=== PATIENT | male | born 1945 | race Caucasian/White ===

== ENCOUNTER 2017-01-26 18:32 | Inpatient (IN) ==
[2017-01-26] MEDS ORDERED: SODIUM CHLORIDE 0.9% 500 ML IV STA (18:56)
[2017-01-26 19:14] LABS: Basophils # 0.1 10*3/uL (0.0-0.2); Basophils % 0.8 % (0.0-0.8); Eosinophils # 0.2 10*3/uL (0.0-0.87); Eosinophils % 2.1 % (0.00-10.9); Hematocrit 42.5 VOL% (42.0-52.0); Hemoglobin 14.6 GM/DL (14.0-18.0); Immature Granulocytes % 0.3 %; Immature Granulocytes Absolute 0.02 #; Lymphocytes # 1.4 10*3/uL (1.4-4.0); Lymphocytes % 19.4 % (21.2-54.2); Mean Corpuscular HGB Conc 34.4 GM/DL (32-36); Mean Corpuscular Hemoglobin 32 PG (27-34); Mean Platelet Volume 11.6 FL (9.6-12.0); Monocytes # 0.6 10*3/uL (0.11-0.8); Monocytes % 8.1 % (1.7-12.7); Neutrophils % 69.3 % (38.7-73.9); Platelet Count 247 T/CUMM (130-400); Red Blood Count 4.52 MC/CUMM (3.8-5.5); White Blood Count 7.3 T/CUMM (4-12)
--- NOTE | 2017-01-26 19:17 | Emergency Department Note ---
Tee Donnelly Rolonda, am scribing for, and in the presence of, Jay Miranda MD 19:07. Ruth Donnelly Charles R, MD, personally performed the services described in this documentation, ascribed by Josselin Oliveira in my presence, and it is both accurate and complete 916 . 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 Denies CP or SOB at current. Family reports patient has been seeing Dr. Moura for several "neurological issues" over the past month. Mode of Arrival: Stretcher Limitations: No Limitations Source: Patient, Old Records Reviewed, RN Notes Reviewed Time Seen by Provider: 01/26/17 18:53 - History of Present Illness HPI Narrative: Pt is a 71 y/o male who presents to the ED via EMS for further evaluation of syncope with an onset of x1 hour [employer]. Pt has a PMHx of HTN and TIA. He states that this has been an ongoing condition for months which is progressively worsening. He states that he was bending over in the refrigerated when he had a "bad spell" passing out. He denies LOC s/p syncope. Daughter states that it happened x2 times today with Sz-like sxs. Pt states that he also had CP and bilateral jaw pain. He states that he recently had a Holter monitor. He confirms weakness and vertigo but denies numbness and change in speech. states that pt recently had a MRI last week and a Dexa scan in [place]. No other complaint/pain in ED. Onset (ago): hour(s) Consistency: constant Severity: moderate, similar to previous episodes Severity scale (1-10): 4 Allergies/Adverse Reactions: Allergies Allergy/AdvReac Type Severity Reaction Status Date / Time No Known Allergies Allergy Verified 01/26/17 18:41 Review of System - Review of System 12 point system: reviewed and no additional remarkable complaints except as stated - Review of System Constitutional: Present: weakness. Absent: chills Eyes: Absent: discharge Head/Ears/Nose/Throat: Absent: earache Respiratory: Absent: cough Cardiovascular: Present: chest pain, syncope Gastrointestinal: Absent: abdominal pain Genitourinary male: Absent: dysuria Musculoskeletal: Present: other (bilateral jaw pain). Absent: arm pain, arthralgia Skin: Absent: rash Neurological: Present: vertigo. Absent: headache, numbness Psychiatric: Absent: anxiety Endocrine: Absent: cold intolerance Hematological/Lymphatic: Absent: easy bleeding Allergic/Immunologic: Absent: facial swelling Medical,Surgical,& Family Hx - Medical History Cardio: History of: Hypertension - Social History Smoking Status: Never smoker Frequency of Alcohol Use: None Type of Drug Use: None Exam Vital Signs: Vital Signs Temperature 98.4 F 01/26/17 18:37 Pulse Rate 92 H 01/26/17 18:37 Respiratory Rate 17 01/26/17 18:37 Blood Pressure 181/114 01/26/17 18:37 O2 Sat by Pulse Oximetry 99 01/26/17 19:17 - General General appearance: alert, in no apparent distress - Head Head exam: Present: atraumatic, normocephalic - Eye Eye exam: Present: PERRL, EOMI - ENT ENT exam: Present: mucous membranes moist. Absent: mucous membranes dry - Neck Neck exam: Present: full ROM. Absent: tenderness - Chest Chest inspection: Present: symmetric chest wall rise. Absent: tenderness - Respiratory Respiratory exam: Present: normal lung sounds bilaterally. Absent: wheezes - Cardiovascular Cardiovascular exam: Present: regular rate, normal rhythm, normal heart sounds. Absent: bradycardia - Abdominal Exam Abdominal exam: Present: soft, normal bowel sounds. Absent: tenderness - Extremities Exam Extremities exam: Present: full ROM. Absent: tenderness - Back Exam Back exam: Present: full ROM. Absent: tenderness - Neurological Exam Neurological exam: Present: alert, oriented X3, CN II-XII intact - Psychiatric Psychiatric exam: Present: normal affect, normal mood - Skin Skin exam: Present: warm, dry, intact, normal color. Absent: rash Course - Consultations Consultation #1: Hospitalist will admit patient Time: 20:00 Results - Labs CBC & BMP: 01/26/17 18:41 01/26/17 18:41 Lab Results: I have reviewed the patients labs Labs: Laboratory Tests 01/26/17 01/26/17 18:41 19:14 WBC 7.3 RBC 4.52 Hgb 14.6 Hct 42.5 Lymph % (Auto) 19.4 L POC Glucose 111 H Laboratory Tests 10/11/17 18:41 INR 1.0 PT Patient/Control Mix 10.6 D-Dimer, Quantitative 0.7 Laboratory Tests 01/26/17 01/26/17 01/26/17 18:41 18:41 18:41 Sodium 139 Potassium 3.9 Chloride 106 Carbon Dioxide 26 BUN 19 H GFR Calculation 77 Glucose 98 AST 13 Troponin I 0.075 H Globulin 4.1 H Albumin/Globulin Ratio 0.9 L Urine pH 7.0 Ur Specific [place] 1.006 Urine Protein Negative Urine Glucose (UA) Negative Urine Ketones 5 Urine Blood Negative Urine Nitrate Negative Urine Bilirubin Negative Urine Urobilinogen < 2.0 H Urine Leukocytes Negative Urine RBC <1 Urine WBC <1 Hyaline Casts 1 Urine Mucus Occasional Ur Culture Indicated? Not indicated Urine Opiates Screen Negative Ur Barbiturates Screen Negative Ur Phencyclidine Scrn Negative U Amphetamine/Methamph Negative U Benzodiazepines Scrn Negative U Cocaine Metab Screen Negative U Cannabinoids Screen Negative - Diagnostic Findings Procedure: Chest x-ray: report reviewed by me (Mild cardiomegaly without CHF.), CT: report reviewed by me (Head/Brain: Chronic small vessel ischemic changes similar on the prior study.) Disposition Clinical Impression: Chest pain, Syncope and collapse Case discussed with: patient, patient's family Disposition: Still a Patient Condition: Stable Time of Disposition: 20:00
--- NOTE | 2017-01-26 19:20 | CT Report ---
History is syncope There is mild diffuse atrophy. Patchy and more focal chronic ischemic changes in both basal ganglia and in seen. No acute cranial hemorrhage or mass effects seen No acute cortical stroke identified Impression: Chronic small vessel ischemic changes similar on the prior study The CT exam was performed using one or more of the following dose reduction techniques: Automated exposure control, adjustment of the mA and/or kV according to patient size, or use of iterative reconstruction technique. PROCEDURE INTERPRETED AT [facility] DEPARTMENT OF RADIOLOGY Final Report Signed by: Dr. Kinjal Ortega
--- NOTE | 2017-01-26 19:21 | XRay Report ---
History short of breath The heart is enlarged No congestive failure or confluent infiltrates seen Impression: Mild cardiomegaly without CHF PROCEDURE INTERPRETED AT [facility] DEPARTMENT OF RADIOLOGY Final Report Signed by: Dr. Kinjal Ortega
[2017-01-26 19:22] LABS: PT Patient Result 10.6 SECS
[2017-01-26 19:29] LABS: Alanine Aminotransferase 22 U/L (16-61); Albumin 3.8 G/DL (3.4-5.0); Alkaline Phosphatase 76 U/L (45-117); Aspartate Amino Transferase 13 U/L (0-37); Bilirubin,Total < 0.39 MG/DL (0.2-1.0); Blood Urea Nitrogen 19 MG/DL (7-18); Calcium 9.4 MG/DL (8.5-10.1); Glucose 98 MG/DL (74-106); Magnesium 2.3 MG/DL (1.8-2.4); Osmolality,Calculated 278.5 MOS/KG (273-304); Potassium 3.9 MMOL/L (3.5-5.1); Sodium 139 MMOL/L (136-145); Total Protein 7.9 G/DL (6.4-8.3)
[2017-01-26 19:31] LABS: Apearance,Urine CLEAR (Clear); Bilirubin,Urine Negative (Negative); Blood, Urine Negative (Negative); Glucose,Urine (UA) Negative (Negative); Hyaline Casts,Urine 1 /LPF (0-3); Ketones,Urine 5 mg/dL (Negative); Mucus,Urine Occasional /LPF (Occasional); Nitrite,Urine Negative (Negative); Protein,Urine Negative; RBC,Urine <1 /HPF (0-4); Troponin I Only 0.075 NG/ML (0.00-0.045); Urine Color Straw (Yellow); Urine Specific Gravity 1.006 (1.001-1.035); Urine Urobilinogen < 2.0 EU/DL (0.2-1.0); WBC,Urine <1 /HPF (0-6)
[2017-01-26 19:40] LABS: Barbiturates Screen,Urine Negative (Negative); Benzodiazepines Screen,Urine Negative (Negative); Cannabinoid Screen,Urine Negative (Negative); Opiate Screen,Urine Negative (Negative); Phencyclidine Screen,Urine Negative (Negative)
--- NOTE | 2017-01-26 20:20 | Hospitalist History & Physical ---
Assessment and Plan (1) Syncope and collapse Status: Acute Assessment and plan: check orthostatics, telemetry, already had holter monitor done as outpatient, stroke workup and consult Dr. Salazar and Dr. Moura Current Visit: Yes (2) Slurred speech Status: Acute Assessment and plan: stroke workup, cont asa Current Visit: Yes (3) Parkinsonian features Status: Acute Assessment and plan: KAY done in [place], unaware of results, pt, ot Current Visit: Yes (4) Hypertension Status: Chronic Assessment and plan: coreg low dose, hold blood pressure meds till results of orthostatics and stroke known Current Visit: Yes Qualifiers: Hypertension type: essential hypertension Qualified Code(s): I10 - Essential (primary) hypertension (5) Gout Status: Acute Assessment and plan: allopurinol, no acute attack Current Visit: Yes (6) Alcoholic dependence syndrome Status: Acute Assessment and plan: claims only one drink a day. Current Visit: Yes History of Present Illness Chief complaint: syncope History of present illness: Mr. 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 Pt has a PMHx of HTN and TIA. He states that this has been an ongoing condition for months which is progressively worsening. He states that he was bending over in the refrigerated when he had a "bad spell" passing out. He denies LOC s/p syncope. Daughter states that it happened x2 times today with Sz-like sxs. Pt states that he also had CP and bilateral jaw pain. He states that he recently had a Holter monitor. He confirms weakness and vertigo but denies numbness and change in speech. states that pt recently had a MRI last week and a Dexa scan in [place]. No other complaint/pain in ED. Home Medications Medication Instructions Recorded Confirmed Type Allopurinol [Allopurinol] 300 mg PO DAILY 01/26/17 01/27/17 History Meloxicam [Meloxicam] 15 mg PO DAILY 01/26/17 01/27/17 History Ramipril [Ramipril] 20 mg PO DAILY 01/26/17 01/27/17 History amLODIPine [Norvasc] 10 mg PO DAILY 01/26/17 01/27/17 History Aspirin/Calcium Carbonate/Mag 325 mg PO DAILY 01/27/17 01/27/17 History [Aspirin Buffered 325 mg Tab] Multivitamin (Centrum) [Centrum 1 tablet PO DAILY 01/27/17 01/27/17 History Tab] Allergies Allergy/AdvReac Type Severity Reaction Status Date / Time No Known Allergies Allergy Verified 01/27/17 02:39 Medical,Surgical,& Family Hx - Medical History Cardio: History of: Hypertension Neurology: History of: TIA (12), Neurological Problems (Multiple syncope episodes) Endocrine: No history of: Diabetes Mellitus (NIDDM), Dyslipidemia Rheumatology: History of;: Gout - Surgical History Orthopedic Surgeries: Surgical HX of;: Orthopedic Surgery (Left knee arthroscopy ) - Family History Family History: Reports;: Family Diabetes Denies;: Family Heart Disease, Family Hypertension, Family Stroke - Social History Smoking Status: Never smoker Frequency of Alcohol Use: Frequently Type of Drug Use: None Marital Status: Lives With:: Spouse Functional capacity: independent ambulation - Constitutional Constitutional: Present: fatigue. Absent: fever(s), headache(s) - EENT Eyes: Absent: blurry vision, loss of vision Ears: Absent: decreased hearing, ear discharge Nose, mouth and throat: Absent: headache(s), sore throat - Cardiovascular Cardiovascular: Absent: chest pain at rest, dyspnea, dyspnea on exertion, edema - Respiratory Respiratory: Absent: dyspnea, wheezing - Gastrointestinal Gastrointestinal: Absent: constipation, diarrhea, nausea, vomiting - Genitourinary Genitourinary: Absent: difficulty urinating, dysuria - Neurological Neurological: Present: dizziness, frequent falls, syncope. Absent: confusion, focal weakness, headache(s) - Psychiatric Psychiatric: Absent: anxiety, confusion, depression, difficulty concentrating - Endocrine Endocrine: Present: fatigue. Absent: heat intolerance - Hematologic/Lymphatic Hematologic/Lymphatic: Absent: easy bleeding, easy bruising Exam - Constitutional Vitals: Period Temp Pulse Resp BP Sys/Caicedo Pulse Ox Last 24 Hr 98.4 F-98.4 F 92-92 17-17 181-181/114-114 97-99 General appearance: no acute distress, over weight - Head Head exam: Present: normal inspection, normocephalic - Eye Eye exam: Present: EOMI. Absent: conjunctival injection Pupils: Present: CASI, normal accommodation - ENT ENT exam: Present: normal exam, normal external ear exam - Respiratory Respiratory exam: Present: clear to auscultation bilaterally. Absent: rhonchi, wheezes - Cardiovascular Cardiovascular exam: Present: regular rate and rhythm. Absent: systolic murmur - GI/Abdominal GI/Abdominal exam: Present: normal bowel sounds, soft. Absent: tenderness - Extremities Exam Extremities exam: Present: normal inspection, normal capillary refill - Neurological Exam Neurological exam: Present: alert, oriented X3, CN II-XII intact, motor sensory deficit (Right lower extremity weakness), reflexes normal, other (Positive Babinski on right) - Psychiatric Psychiatric exam: Present: normal mood, flat affect - Skin Skin exam: Present: normal color, warm Results - Labs CBC & BMP: 01/26/17 18:41 01/26/17 18:41 Lab Results: I have reviewed the past 24 hour labs - Diagnostic Findings Procedure: Chest x-ray: report reviewed by me (Cardiomegaly without CHF), CT: report reviewed by me (Nothing acute old basilar lacunar infarcts)
[2017-01-26] MEDS ORDERED: LABETALOL 20 MG/4 ML SYRINGE IV PRN (21:31)
[2017-01-26] MEDS: ATORVASTATIN 80 MG TABLET PO SCH (22:31)
[2017-01-26] MEDS: THIAMINE 100 MG TABLET PO SCH (22:31)
[2017-01-26] MEDS: CARVEDILOL 3.125 MG TABLET PO SCH (22:31)
[2017-01-26] MEDS: FOLIC ACID 1 MG TABLET PO SCH (22:31)
[2017-01-26] MEDS: ENOXAPARIN 40 MG/0.4 ML SYRINGE SUBCUT SCH (22:31)
[2017-01-26 22:36] LABS: Barbiturates Screen,Urine Negative (Negative); Benzodiazepines Screen,Urine Negative (Negative); Cannabinoid Screen,Urine Negative (Negative); Opiate Screen,Urine Negative (Negative); Phencyclidine Screen,Urine Negative (Negative)
[2017-01-27 06:52] LABS: Risk Ratio 4.78; VLDL CHOLESTEROL 23.6 MG/DL
--- NOTE | 2017-01-27 07:30 | Ultrasound Report ---
Exam: Carotid ultrasound Date: 01/27/2017 Comparison: None Technique: Duplex scans of the carotid and vertebral arteries using B-mode/Avila scale imaging and Doppler spectral analysis and color flow. Reason: Right-sided weakness Findings: The right ICA measures 5.8 mm in diameter and the left ICA measures 5.8 mm in diameter. Color-flow documented in the visualized arteries. The peak systolic velocities are as follows: Right CCA: 56.0 Right ICA: 84.6 Right ECA:96.4 Left CCA: 70.3 Left ICA: 65.0 Left ECA: 85.9 The peak systolic ICA/CCA velocity ratios are as follows: 1.5 on the right and 0.9 on the left. Antegrade flow is present in both vertebral arteries. Impression:[Less than 50% stenosis in both internal carotid arteries with heterogeneous plaque formation. Antegrade flow in both vertebral arteries.] The Society of Radiologists in Ultrasound consensus conference criteria was used. The Ultrasound images were captured and stored. PROCEDURE INTERPRETED AT [facility] DEPARTMENT OF RADIOLOGY Final Report Signed by: Dr. Magaly Rodriguez
[2017-01-27] MEDS: THIAMINE 100 MG TABLET PO SCH (08:20)
[2017-01-27] MEDS: ASPIRIN 325 MG TABLET PO SCH (08:20)
[2017-01-27] MEDS: ALLOPURINOL 300 MG TABLET PO SCH (08:20)
[2017-01-27] MEDS: FOLIC ACID 1 MG TABLET PO SCH (08:21)
[2017-01-27] MEDS: CARVEDILOL 3.125 MG TABLET PO SCH (08:22)
--- NOTE | 2017-01-27 09:32 | CT Report ---
Indication: Right-sided weakness Comparison: Noncontrast CT head dated 01/26/2017 and MRI brain 01/10/2017 brain Technique: Serial axial tomographic images of the brain and neck are obtained without the use of intravenous contrast. Then, following the IV administration of intravenous contrast, axial tomographic images of the brain and neck are obtained utilizing an angiogram protocol. Multiplanar reformatted images are obtained and reviewed. 3-D/MIP images of the neck and intracranial vasculature were created at a separate workstation and submitted for review. The total DLP is 2960 mGy*cm. Dose reduction: This CT exam was performed using one or more of the following dose reduction techniques: Automated exposure control, automated adjustment of the mA and/or KV according to patient size, or use of iterative reconstruction technique. Findings: CTA HEAD: The midline structures are nondisplaced. There is no evidence of hydrocephalus. There is no evidence of acute intracranial hemorrhage. The real-white matter differentiation is maintained. The visualized paranasal sinuses, mastoid air cells and middle ear cavities are clear. The included orbits are intact. The visualized osseous structures and overlying soft tissues of the skull and face demonstrate no acute abnormality. Minimal atherosclerotic plaque noted within the cavernous and supraclinoid internal carotid arteries without suggestion of significant stenosis. A1 segment of the left anterior cerebral artery is somewhat diminutive/hypoplastic but patent. The anterior circulation demonstrates no aneurysm, AVM or occlusion. The posterior circulation demonstrates no aneurysm, AVM or occlusion. origin of the left posterior cerebral artery noted. CTA NECK: Scattered atherosclerotic plaque noted within the thoracic aorta without significant suggestion of thoracic aortic aneurysm. The proximal great vessels are patent with normal three-vessel arch. The bilateral subclavian arteries, as visualized appear within normal limits. Bilateral vertebral arteries are patent. Of note, the right vertebral artery is dominant and left vertebral artery is diminutive with no focal abnormality otherwise identified. Right carotid: Common carotid artery is essentially widely patent with minimal atherosclerotic plaque at the bifurcation and no significant luminal stenosis. External carotid artery is patent. The upper cervical internal carotid artery is markedly tortuous and measures approximately 4.9 mm diameter. Left carotid: Common carotid artery is widely patent with focal neck atherosclerotic plaque at the rotation and proximal internal carotid artery with suggestion of at least 55-55% luminal stenosis (axial image 146). Sternal carotid artery and branches are patent. The internal carotid artery is mildly tortuous and the upper cervical spine and measures 5.1 mm diameter. Multilevel mild degenerative changes noted throughout the cervical spine including disc space loss and endplate sclerosis with facet and uncovertebral hypertrophy primarily at the C5-T1 levels. The osseous structures of the cervical spine demonstrate no acute abnormality. The visualized soft tissues of the neck demonstrate no acute abnormality. The visualized lung apices demonstrate no acute abnormality. Minimal posterior basilar atelectatic changes noted. IMPRESSION: Moderate stenosis at the proximal left internal carotid artery estimated at 55-65% primarily due to mixed atherosclerotic plaque. No significant stenosis within the right internal carotid artery. No evidence of intracranial AVM, aneurysm or significant flow-limiting stenosis. PROCEDURE INTERPRETED AT [facility] DEPARTMENT OF RADIOLOGY Final Report Signed by: Satish Christy
--- NOTE | 2017-01-27 10:43 | Magnetic Resonance Report ---
Exam: MR head/brain wo con Date: 01/27/2017 12:00 AM Comparison: 01/10/2017 Indication: Right-sided weakness, slurred speech Technique:[Multiple acquisitions were obtained including sagittal T1, coronal T2, and axial ADC, diffusion, FLAIR, T2, GRE, and T1 scans without contrast only. Scans were obtained on an open 1.2 Laurie magnet.] Findings: The ventricles remain borderline in size with no midline displacement. The pituitary has a normal appearance and the cerebellar tonsils are normal in their location. No acute infarction is identified on the diffusion scans. No evidence of hemorrhage, mass, or extracerebral collection. Enlarged perivascular spaces are noted with additional chronic bilateral basal ganglia infarcts. Diffuse atrophy and scattered FLAIR/T2 hyperintensities. Persistent asymmetry in the intraocular lenses which can be related to prior surgery. No acute findings in the paranasal sinuses, temporal bones, or [place]. Impression: No acute infarction is identified. Persistent atrophy, microvascular disease, and chronic bilateral basal ganglia infarcts. PROCEDURE INTERPRETED AT [facility] DEPARTMENT OF RADIOLOGY Final Report Signed by: Dr. Magaly Rodriguez
--- NOTE | 2017-01-27 15:40 | Order Completion Report ---
See report scanned to EMR
--- NOTE | 2017-01-27 16:40 | Hospitalist Progress Note ---
Assessment and Plan (1) Syncope and collapse Status: Acute Assessment and plan: Continue workup as discussed with cardiology. Repeat cardiac enzymes Consider outpatient stress test versus left heart cath Reduce beta-chayo dose Continue statin Plan for outpatient 30 day event monitor upon discharge Current Visit: Yes (2) Parkinsonian features Status: Acute Assessment and plan: Follow-up with neurology Current Visit: Yes (3) Hypertension Status: Chronic Assessment and plan: Start beta-chayo. Resume KAROL inhibitor. Hold Norvasc. Current Visit: Yes Qualifiers: Hypertension type: essential hypertension Qualified Code(s): I10 - Essential (primary) hypertension Hospitalist: Subjective Interval history: Patient seen and examined. No acute events overnight. Case discussed with nursing staff. Labs reviewed. Case discussed with Dr. Daniels. Plan for 30 day event monitor after discharge. Dr. Daniels will evaluate for possible left heart cath versus outpatient stress test. Will hold beta-chayo dose to rule out bradycardia or orthostatic hypotension as a cause for his syncope. MRI without clear cause for his symptoms. Agree with starting statin for low HDL. Exam - Constitutional Vitals: Period Temp Pulse Resp BP Sys/Caicedo Pulse Ox Last 24 Hr 97.0 F-98.4 F 55-92 16-20 148-193/86-114 97-100 Exam: Constitutional System: No distress. No tremulousness. Head: Normocephalic, atraumatic. Ears, Nose and Throat System: No pain or tenderness. No epistaxis or discharge Eyes System: Pupils equal, round, and reactive. Extraocular muscles intact. Neck: Supple, without adenopathy, No jugular venous distention. No thyromegaly, neck mass, or prior surgery apparent. Respiratory System: Chest clear to auscultation. Cardiovascular System: Heart with regular rate and rhythm. No murmur. GI System: Abdomen soft, nontender. Normo active bowel sounds present. Musculoskeletal System: limbs with no pedal edema. Full distal pulses. Normal capillary refill. Neurological System: No discernable sensory deficit. No aphasia Psychiatric System: Conversation is rational Results - Labs CBC & BMP: 01/26/17 18:41 01/26/17 18:41 Lab Results: I have reviewed the past 24 hour labs
[2017-01-27] MEDS ORDERED: hydrALAZINE 20 MG/1 ML VIAL IV PRN (16:44)
[2017-01-27 17:50] LABS: Troponin I Only 0.059 NG/ML (0.00-0.045)
[2017-01-27] MEDS: RAMIPRIL 5 MG CAPSULE PO SCH (18:03)
--- NOTE | 2017-01-27 20:37 | Order Completion Report ---
See report scanned to EMR
[2017-01-27] MEDS: ATORVASTATIN 80 MG TABLET PO SCH (20:42)
[2017-01-27] MEDS: ENOXAPARIN 40 MG/0.4 ML SYRINGE SUBCUT SCH ×2 (20:43→21:08)
[2017-01-27 23:20] LABS: Troponin I Only 0.064 NG/ML (0.00-0.045)
--- NOTE | 2017-01-27 23:36 | Cardiology Consult Note ---
I, Linnette Ryan RN, am scribing for, and in the presence of, Chino Daniels MD 23:33. Assessment and Plan - Time spent with patient Time spent with patient: Greater than 30 minutes (Due to assessment, planning, documentation, medication review) (1) Syncope and collapse Status: Acute Assessment and plan: Differential diagnoses include Shy-Drager syndrome related to his Parkinson's disease, bradycardia, tachycardia, neurological event, some type of seizure, conversion disorder, related sleep apnea or some other cause Differential diagnosis of his chest pain would be CAD GI or muscle skeletal Plan/recommendation: Check cardiac isoenzymes If positive, will do cath If negative will be doing an outpatient stress test with Cardiolite and possible Lexiscan Referral to Dr. Flores regarding suspected sleep apnea-the patient is okay with this Orthostatic blood pressure checks I discussed with the patient the benefits of tapering and discontinuing oral tobacco. He is considering it. He improved with me of me talking to his son-in-law, Flavio, but his overall condition Proton pump inhibitor Low-dose aspirin Hold Coreg because of borderline bradycardia If need other tests for blood pressure can use one it would not have an effect on lowering the heart rate We might consider a 30 day event monitor after he is out of the hospital, particularly since his events are relatively infrequent Next would be to try a linq --to document rhythm with symptoms I conferred care with Dr. Julieta Brown Thank you for allowing me to participate in this patient's care Current Visit: Yes (2) Suspected sleep apnea Status: Acute Current Visit: Yes (3) Chest pain Status: Acute Current Visit: Yes (4) Parkinsonian features Status: Acute Current Visit: Yes (5) Hypertension Status: Chronic Current Visit: Yes Qualifiers: Hypertension type: essential hypertension Qualified Code(s): I10 - Essential (primary) hypertension History of Present Illness - Data of Consult Patient: new to practice Consult date: 01/26/17 Requesting Physician: Shonna Estrada Primary care physician: Lj Graf - Consult Narrative Reason for consult: Syncope History of present illness: Playback Operator: New to Dr. Daniels PCP: Dr. Graf Mr. Joshi is a 71 year old male who is never been seen by sanitarian aide. He denies ever having had a heart catheterization or stress test. He denies ever having any known rhythm problems. His medical history includes hypertension, TIAs, and gout. Family history is positive for mother with diabetes and father with heart disease. Reportedly quit smoking 40 years ago. Mr. Joshi reports he has been having syncopal episodes since September or October. He reports that he feels fine before each episode, is usually out for about 2 minutes, and feels weak and dizzy afterwards. He has been checking his blood pressure and have been okay. He has seen his primary doctor as well as a neurologist for these episodes and has had CTs done of his head. He also had a Holter monitor in November of this year. It indicated normal sinus rhythm with frequent PVCs and some ventricular bigeminy, no bradycardia cardia or tachycardia. He did not indicate any symptoms when he had this monitor on. He reports his symptoms have been getting more frequent. On Tuesday of this week he decided to stop some of his medications see if that help. He stopped his Norvasc, ramipril, and meloxicam. His syncopal episodes have continued. He had 3 yesterday. Yesterday he also had epigastric/chest pain as well as bilateral jaw pain. He rated it a 5 on a scale of 1-10. He noted no triggers or alleviators. It is not reproducible to palpation, deep breathing, or movement. He also reports being short of breath at this time. He presented to the emergency department yesterday for further evaluation. His blood pressure has been elevated since admission, it was 181/114 initially. He has been started on carvedilol 3.25 twice daily and has labetalol IV ordered as needed. Troponin has been elevated, ranging from 0.0750 0.160. EKG showed sinus rhythm with heart rate of 88. Carotid Doppler showed less than 50% stenosis in both internal carotid arteries. Today he has had CTA of the head and neck and MRI of the brain. Results are pending. CT of the head indicated chronic small vessel ischemic changes similar to the previous study. An echocardiogram has been ordered. History is is currently seen resting in bed with at bedside. He denies any chest pain, shortness of breath, palpitations, or dizziness. He denies having had any syncopal episodes since he has been admitted to the hospital. His blood pressures have improved slightly, this morning it was 148/90. SPH: No, yes, yes and yes Does snore. Unknown about apnea.? Excessive daytime somnolence Recent chest pain came out of the blue. However it went to both sides of his jaw. It lasted a few minutes. CC: Rafita Brown MD - Home Medications and Allergies Home Medications: Home Medications Medication Instructions Recorded Confirmed Type Allopurinol [Allopurinol] 300 mg PO DAILY 01/26/17 01/27/17 History Meloxicam [Meloxicam] 15 mg PO DAILY 01/26/17 01/27/17 History Ramipril [Ramipril] 20 mg PO DAILY 01/26/17 01/27/17 History amLODIPine [Norvasc] 10 mg PO DAILY 01/26/17 01/27/17 History Aspirin/Calcium Carbonate/Mag 325 mg PO DAILY 01/27/17 01/27/17 History [Aspirin Buffered 325 mg Tab] Multivitamin (Centrum) [Centrum 1 tablet PO DAILY 01/27/17 01/27/17 History Tab] Allergies/Adverse Reactions: Allergies Allergy/AdvReac Type Severity Reaction Status Date / Time No Known Allergies Allergy Verified 01/27/17 02:39 - Constitutional Constitutional: Present: as per HPI - EENT Eyes: Present: requires corrective lense Ears: Absent: decreased hearing, ear pain, tinnitus Nose, mouth and throat: Present: headache(s). Absent: epistaxis, neck pain - Cardiovascular Cardiovascular: Present: chest pain at rest, chest pain with activity, dyspnea, dyspnea on exertion, lightheadedness. Absent: diaphoresis, edema, radiating jaw , neck or arm pain, orthopnea, palpitations - Respiratory Respiratory: Present: dyspnea, dyspnea on exertion. Absent: cough, hemoptysis, wheezing - Gastrointestinal Gastrointestinal: Present: constipation. Absent: abdominal pain, diarrhea, hematemesis, hematochezia, melena, nausea, vomiting - Genitourinary Genitourinary: Absent: dysuria, hematuria - Musculoskeletal Musculoskeletal: Absent: limited range of motion, muscle weakness - Neurological Neurological: Present: dizziness, headache(s), syncope. Absent: confusion - Psychiatric Psychiatric: Absent: anxiety, depression - Endocrine Endocrine: Present: fatigue - Hematologic/Lymphatic Hematologic/Lymphatic: Absent: easy bleeding, easy bruising Medical,Surgical,& Family Hx - Medical History Cardio: History of: Hypertension, Cardiovascular Problems (cardiomegaly) Neurology: History of: TIA, Neurological Problems (Multiple syncope episodes) Rheumatology: History of;: Gout - Surgical History HEENT Surgeries: Surgical HX of: Eye Surgery (Left cataract), Tonsilectomy & Adenoidectomy Orthopedic Surgeries: Surgical HX of;: Orthopedic Surgery (Left knee arthroscopy ) - Family History Family History: Reports;: Family Diabetes (Mother), Family Heart Disease (Father ) - Social History Smoking Status: Former smoker (Reportedly quit 40 years ago) Have you smoked in the last 12 months: No Frequency of Alcohol Use: Frequently Type of Drug Use: None Marital Status: Lives With:: Spouse Functional capacity: independent ambulation Physical Examination Vital Signs Temp Pulse Resp BP Pulse Ox 98.4 F 92 H 17 181/114 97 01/26/17 18:37 01/26/17 18:37 01/26/17 18:37 01/26/17 18:37 01/26/17 18:37 General: Present: Appears Well, No Apparent Distress HEENT: Present: PERRL, Sinus Tenderness Neck: Present: Supple Neck, Midline Trachea Cardiac: Present: Reg Rate and Rhythm, No Murmur Lungs: Present: Normal Breath Sounds, No Wheeze, Rales, Rhonchi Neuro: Absent: Resting Tremor, Essential Tremor Abdomen: Present: Soft, Active Bowel Sounds, Non-Tender. Absent: Distended Skin: Absent: Rash, Suspicious Lesions Musculoskeletal: Present: No Pain, Normal Range of Motion Extremities: Present: No Edema, Normal Upper Extr. Pulses, Normal Lower Extr. Pulses Result/EKG - Labs CBC & BMP: 01/26/17 18:41 01/26/17 18:41 Lab Results: I have reviewed the past 24 hour labs Labs: Laboratory Results - last 24 hr 01/26/17 01/26/17 01/26/17 18:41 18:41 18:41 WBC 7.3 RBC 4.52 Hgb 14.6 Hct 42.5 MCV 94.0 MCH 32 MCHC 34.4 RDW 13.0 Plt Count 247 MPV 11.6 Neut % (Auto) 69.3 Lymph % (Auto) 19.4 L Camp % (Auto) 8.1 Eos % (Auto) 2.1 Baso % (Auto) 0.8 Neut # (Auto) 5.0 Lymph # (Auto) 1.4 Camp # (Auto) 0.6 Eos # (Auto) 0.2 Baso # (Auto) 0.1 Immature Gran % 0.3 Nucleated RBC % 0.0 Immature Gran # 0.02 Nucleated RBCs # 0.00 Immature Plt Fraction 0.0 INR 1.0 PT Patient/Control Mix 10.6 D-Dimer, Quantitative 0.7 Sodium 139 Potassium 3.9 Chloride 106 Carbon Dioxide 26 Anion Gap 10.9 BUN 19 H Creatinine 1.30 GFR Calculation 77 BUN/Creatinine Ratio 14.00 Glucose 98 POC Glucose Hemoglobin A1c Calculated Osmolality 278.5 Calcium 9.4 Magnesium 2.3 Total Bilirubin < 0.39 AST 13 ALT 22 Alkaline Phosphatase 76 Total Creatine Kinase 47 CK-MB (CK-2) < 1.0 Troponin I 0.075 H B-Natriuretic Peptide Total Protein 7.9 Albumin 3.8 Globulin 4.1 H Albumin/Globulin Ratio 0.9 L Triglycerides Cholesterol LDL Cholesterol VLDL Cholesterol HDL Cholesterol Heart Disease Risk Ratio Vitamin B12 Urine Color Urine Appearance Urine pH Ur Specific Rosanky Urine Protein Urine Glucose (UA) Urine Ketones Urine Blood Urine Nitrate Urine Bilirubin Urine Urobilinogen Urine Leukocytes Urine RBC Urine WBC Hyaline Casts Urine Mucus Ur Culture Indicated? Urine Opiates Screen Ur Barbiturates Screen Ur Phencyclidine Scrn U Amphetamine/Methamph U Benzodiazepines Scrn U Cocaine Metab Screen U Cannabinoids Screen 01/26/17 01/26/17 01/26/17 18:41 18:41 18:41 WBC RBC Hgb Hct MCV MCH MCHC RDW Plt Count MPV Neut % (Auto) Lymph % (Auto) Camp % (Auto) Eos % (Auto) Baso % (Auto) Neut # (Auto) Lymph # (Auto) Camp # (Auto) Eos # (Auto) Baso # (Auto) Immature Gran % Nucleated RBC % Immature Gran # Nucleated RBCs # Immature Plt Fraction INR PT Patient/Control Mix D-Dimer, Quantitative Sodium Potassium Chloride Carbon Dioxide Anion Gap BUN Creatinine GFR Calculation BUN/Creatinine Ratio Glucose POC Glucose Hemoglobin A1c Calculated Osmolality Calcium Magnesium Total Bilirubin AST ALT Alkaline Phosphatase Total Creatine Kinase CK-MB (CK-2) Troponin I B-Natriuretic Peptide 45 Total Protein Albumin Globulin Albumin/Globulin Ratio Triglycerides Cholesterol LDL Cholesterol VLDL Cholesterol HDL Cholesterol Heart Disease Risk Ratio Vitamin B12 Urine Color Straw Urine Appearance Clear Urine pH 7.0 Ur Specific Rosanky 1.006 Urine Protein Negative Urine Glucose (UA) Negative Urine Ketones 5 Urine Blood Negative Urine Nitrate Negative Urine Bilirubin Negative Urine Urobilinogen < 2.0 H Urine Leukocytes Negative Urine RBC <1 Urine WBC <1 Hyaline Casts 1 Urine Mucus Occasional Ur Culture Indicated? Not indicated Urine Opiates Screen Negative Ur Barbiturates Screen Negative Ur Phencyclidine Scrn Negative U Amphetamine/Methamph Negative U Benzodiazepines Scrn Negative U Cocaine Metab Screen Negative U Cannabinoids Screen Negative 01/26/17 01/26/17 01/26/17 18:41 19:14 21:44 WBC RBC Hgb Hct MCV MCH MCHC RDW Plt Count MPV Neut % (Auto) Lymph % (Auto) Camp % (Auto) Eos % (Auto) Baso % (Auto) Neut # (Auto) Lymph # (Auto) Camp # (Auto) Eos # (Auto) Baso # (Auto) Immature Gran % Nucleated RBC % Immature Gran # Nucleated RBCs # Immature Plt Fraction INR PT Patient/Control Mix D-Dimer, Quantitative Sodium Potassium Chloride Carbon Dioxide Anion Gap BUN Creatinine GFR Calculation BUN/Creatinine Ratio Glucose POC Glucose 111 H Hemoglobin A1c Calculated Osmolality Calcium Magnesium Total Bilirubin AST ALT Alkaline Phosphatase Total Creatine Kinase CK-MB (CK-2) Troponin I 0.150 H D B-Natriuretic Peptide Total Protein Albumin Globulin Albumin/Globulin Ratio Triglycerides Cholesterol LDL Cholesterol VLDL Cholesterol HDL Cholesterol Heart Disease Risk Ratio Vitamin B12 616 Urine Color Urine Appearance Urine pH Ur Specific Rosanky Urine Protein Urine Glucose (UA) Urine Ketones Urine Blood Urine Nitrate Urine Bilirubin Urine Urobilinogen Urine Leukocytes Urine RBC Urine WBC Hyaline Casts Urine Mucus Ur Culture Indicated? Urine Opiates Screen Ur Barbiturates Screen Ur Phencyclidine Scrn U Amphetamine/Methamph U Benzodiazepines Scrn U Cocaine Metab Screen U Cannabinoids Screen 01/26/17 01/26/17 01/27/17 21:44 22:15 00:31 WBC RBC Hgb Hct MCV MCH MCHC RDW Plt Count MPV Neut % (Auto) Lymph % (Auto) Camp % (Auto) Eos % (Auto) Baso % (Auto) Neut # (Auto) Lymph # (Auto) Camp # (Auto) Eos # (Auto) Baso # (Auto) Immature Gran % Nucleated RBC % Immature Gran # Nucleated RBCs # Immature Plt Fraction INR PT Patient/Control Mix D-Dimer, Quantitative Sodium Potassium Chloride Carbon Dioxide Anion Gap BUN Creatinine GFR Calculation BUN/Creatinine Ratio Glucose POC Glucose Hemoglobin A1c 5.3 Calculated Osmolality Calcium Magnesium Total Bilirubin AST ALT Alkaline Phosphatase Total Creatine Kinase CK-MB (CK-2) Troponin I 0.162 H B-Natriuretic Peptide Total Protein Albumin Globulin Albumin/Globulin Ratio Triglycerides Cholesterol LDL Cholesterol VLDL Cholesterol HDL Cholesterol Heart Disease Risk Ratio Vitamin B12 Urine Color Urine Appearance Urine pH Ur Specific Rosanky Urine Protein Urine Glucose (UA) Urine Ketones Urine Blood Urine Nitrate Urine Bilirubin Urine Urobilinogen Urine Leukocytes Urine RBC Urine WBC Hyaline Casts Urine Mucus Ur Culture Indicated? Urine Opiates Screen Negative Ur Barbiturates Screen Negative Ur Phencyclidine Scrn Negative U Amphetamine/Methamph Negative U Benzodiazepines Scrn Negative U Cocaine Metab Screen Negative U Cannabinoids Screen Negative 01/27/17 01/27/17 05:33 05:33 WBC RBC Hgb Hct MCV MCH MCHC RDW Plt Count MPV Neut % (Auto) Lymph % (Auto) Camp % (Auto) Eos % (Auto) Baso % (Auto) Neut # (Auto) Lymph # (Auto) Camp # (Auto) Eos # (Auto) Baso # (Auto) Immature Gran % Nucleated RBC % Immature Gran # Nucleated RBCs # Immature Plt Fraction INR PT Patient/Control Mix D-Dimer, Quantitative Sodium Potassium Chloride Carbon Dioxide Anion Gap BUN Creatinine GFR Calculation BUN/Creatinine Ratio Glucose POC Glucose Hemoglobin A1c Calculated Osmolality Calcium Magnesium Total Bilirubin AST ALT Alkaline Phosphatase Total Creatine Kinase CK-MB (CK-2) Troponin I 0.126 H D B-Natriuretic Peptide Total Protein Albumin Globulin Albumin/Globulin Ratio Triglycerides 118 Cholesterol 172 LDL Cholesterol 123.0 VLDL Cholesterol 23.6 HDL Cholesterol 36 L Heart Disease Risk Ratio 4.78 Vitamin B12 Urine Color Urine Appearance Urine pH Ur Specific Rosanky Urine Protein Urine Glucose (UA) Urine Ketones Urine Blood Urine Nitrate Urine Bilirubin Urine Urobilinogen Urine Leukocytes Urine RBC Urine WBC Hyaline Casts Urine Mucus Ur Culture Indicated? Urine Opiates Screen Ur Barbiturates Screen Ur Phencyclidine Scrn U Amphetamine/Methamph U Benzodiazepines Scrn U Cocaine Metab Screen U Cannabinoids Screen - Diagnostic Findings Procedure: Chest x-ray: report reviewed by me - EKG EKG results: interpreted by me EKG shows: sinus rhythm Specialty Discharge - Follow Up or Referrals Follow up with: Chino Daniels MD [Physician] - (3-4 weeks. Sooner if problems) I, Chino Daniels MD, personally performed the services described in this documentation, ascribed by Linnette Ryan RN in my presence, and it is both accurate and complete 334 .
[2017-01-28 06:34] LABS: Troponin I Only 0.051 NG/ML (0.00-0.045)
--- NOTE | 2017-01-28 09:13 | Order Completion Report ---
See report scanned to EMR
[2017-01-28] MEDS: FOLIC ACID 1 MG TABLET PO SCH (09:15)
[2017-01-28] MEDS: ASPIRIN 325 MG TABLET PO SCH (09:15)
[2017-01-28] MEDS: ALLOPURINOL 300 MG TABLET PO SCH (09:15)
[2017-01-28] MEDS: THIAMINE 100 MG TABLET PO SCH (09:15)
[2017-01-28] MEDS: RAMIPRIL 5 MG CAPSULE PO SCH (09:17)
--- NOTE | 2017-01-28 12:57 | Neurology Consult Note ---
History of Present Illness History of present illness: Mr. Joshi is a 71 year old right-handed white gentleman who presents to the ED via EMS for further evaluation of syncope. Patient reported that he has had 3 or 4 episodes in the last 3-4 weeks. I recently evaluated him in my office for possible extrapyramidal syndrome/Parkinson's disease. His workup came back positive for Parkinson's disease. Pt has a PMHx of HTN and TIA. He states that this has been an ongoing condition for months which is progressively worsening. He states that he was bending over in the refrigerated when he had a "bad spell " passing out. Daughter states that it happened x2 times the day of admission. Pt states that he also had CP and bilateral jaw pain. Cardiology workup is in progress he states that he recently had a Holter monitor. Home Medications Medication Instructions Recorded Confirmed Type Allopurinol [Allopurinol] 300 mg PO DAILY 01/26/17 01/27/17 History Meloxicam [Meloxicam] 15 mg PO DAILY 01/26/17 01/27/17 History Ramipril [Ramipril] 20 mg PO DAILY 01/26/17 01/27/17 History amLODIPine [Norvasc] 10 mg PO DAILY 01/26/17 01/27/17 History Aspirin/Calcium Carbonate/Mag 325 mg PO DAILY 01/27/17 01/27/17 History [Aspirin Buffered 325 mg Tab] Multivitamin (Centrum) [Centrum 1 tablet PO DAILY 01/27/17 01/27/17 History Tab] Allergies Allergy/AdvReac Type Severity Reaction Status Date / Time No Known Allergies Allergy Verified 01/27/17 02:39 12 point system: reviewed and no additional remarkable complaints except as stated Medical,Surgical,& Family Hx - Medical History Cardio: History of: Hypertension, Cardiovascular Problems (cardiomegaly) Neurology: History of: TIA, Neurological Problems (Multiple syncope episodes) Endocrine: No history of: Diabetes Mellitus (NIDDM), Dyslipidemia Rheumatology: History of;: Gout - Surgical History Cardiac Surgeries: Patient Denies: Femoral-Popliteal Bypass Graft, Cardiac Catheterization, Cardiac Surgery, Carotid Endarterectomy, Internal Defibrillator, Vascular Access Devices Thoracic Surgeries: Patient denies;: Organ Transplant, Lobectomy HEENT Surgeries: Surgical HX of: Eye Surgery (Left cataract), Tonsilectomy & Adenoidectomy Patient denies: Carotid Endarterectomy, Thyroid Surgery Abdominal Surgeries: Patient denies: Abdominal Surgery, Appendectomy, Cholecystectomy, Colonoscopy , Gastric Bypass Surgery, EGD, Hernia Repair, Splenectomy Orthopedic Surgeries: Surgical HX of;: Orthopedic Surgery (Left knee arthroscopy ) - Family History Family History: Reports;: Family Diabetes (Mother), Family Heart Disease (Father ) Denies;: Family Anesthesia Reaction, Family Cancer, Family Hematology, Family Hypertension, Family Psychiatric Problems, Family Stroke, Additional Family History - Social History Smoking Status: Former smoker (Reportedly quit 40 years ago) Frequency of Alcohol Use: Frequently Type of Drug Use: None Exam - Constitutional Vitals: Period Temp Pulse Resp BP Sys/Caicedo Pulse Ox Last 24 Hr 96.1 F-98.4 F 55-68 18-20 120-169/64-100 96-98 Exam: GENERAL: Patient is in no acute distress. NECK: Neck is supple. There is no JVD. No carotid bruits present. No thyroid masses. CVS: First and second heart sounds are normal. There is no S3 present. Regular rate and rhythm. RESPIRATORY: Lungs are clear to auscultation without any rales or rhonchi. ABDOMEN: Soft and non-tender. Bowel sounds are present. There is no hepatosplenomegaly. EXT: There is no palpable edema. Peripheral pulses are present. Skin: No rashes Central Nervous system: General: Alert, awake and Oriented x 3 Speech: Fluent Comprehension: Intact and normal Facial expressions: Normal Cranial Nerves: CN1/Olfactory: Normal CN II/ Optic: Normal, Visual Begum unreliable CN III, and : CASI & EOMI CN V: Normal & intact CN VII: face is symmetric CNVIII: Normal CN XI/X/XI/XII: Intact and Normal Motor: Bilateral cogwheel rigidity and bradykinesia Strength in the right 4/5 Strength in the left 4/5 Sensory: Grossly intact for all the modalities of PP, LT and temp sense Reflexes: 1+ and symmetrical Cerebellar function: Normal finger to nose and heel to loepz testing. Toes: Equivocal Gait: Walking with the help of a walker Results - Labs CBC & BMP: 01/26/17 18:41 01/26/17 18:41 Assessment and Plan (1) Parkinsons disease Status: Acute Assessment and plan: We will add Requip 0.25 mg p.o. 3 times daily Current Visit: Yes (2) Syncope and collapse Status: Acute Assessment and plan: This does not sound like neurological in origin. Workup is in progress Thank you for the consult Current Visit: Yes Specialty Discharge - Follow Up or Referrals Follow up with: Chino Daniels MD [Physician] - (3-4 weeks. Sooner if problems)
[2017-01-28] MEDS: rOPINIRole 0.25 MG TABLET PO SCH ×2 (15:16→21:01)
--- NOTE | 2017-01-28 15:56 | Cardiology Progress Note ---
Shelby Donnelly April, RN, am scribing for, and in the presence of, Naya Dominguez NP 15:54. Assessment and Plan - Time spent with patient Time spent with patient: Greater than 30 minutes (1) Syncope and collapse Status: Acute Assessment and plan: SEE PLAN OF CARE LISTED BELOW Current Visit: Yes (2) Chest pain Status: Resolved Assessment and plan: SEE PLAN OF CARE LISTED BELOW Current Visit: Yes (3) Parkinsonian features Status: Acute Assessment and plan: SEE PLAN OF CARE LISTED BELOW Current Visit: Yes (4) Suspected sleep apnea Status: Chronic Assessment and plan: SEE PLAN OF CARE LISTED BELOW Current Visit: Yes (5) Hypertension Status: Chronic Assessment and plan: SEE PLAN OF CARE LISTED BELOW Current Visit: Yes Qualifiers: Hypertension type: essential hypertension Qualified Code(s): I10 - Essential (primary) hypertension Cardiology - PN: Subj Interval history: Naya Donnelly NP, personally examined, interviewed and developed the plan of care for Mr. Joshi in the presence of Linnette Ryan RN. Linnette Ryan RN acted as a scribe in the presence. SCAFFOLD ERECTOR: DR. DANIELS (new) PCP: DR. NICOLAS SUMMARY: Mr. Joshi, 71WM, with no known history of CAD but risk factors significant for: hypertension, TIAs. Admitted January 26, 2017 after experiencing several syncopal episodes within 24 hours prior to admission. He has been battling this problem for several months. He has been worked up by Dr. Nicolas, Dr. Moura and, unfortunately, no definite etiology has been identified. November 2016 Holter monitor revealed frequent PVCs, occasional and some ventricular bigeminy, however no significant arrhythmia. During this admission, no arrhythmia has been identified. CT head reveals chronic, small vessel ischemic changes, no acute abnormality. Carotid ultrasounds reveal no significant stenosis. It is believed that he has been diagnosed with Parkinson' s disease. Cardiology was consulted for mildly abnormal troponins (normal CPK and CK-MB), syncope. January 27, 2017 echocardiogram: EF 55%, no significant valvular abnormality. JANUARY 28, 2017: Patient is followed for chronic, stable conditions include hypertension, TIAs. He has followed for more acute conditions to include syncope. Denies chest pain, heaviness, tightness. Denies shortness of breath, PND or orthopnea. Mr. Joshi is seen today along with his . Overnight, no arrhythmia noted. Vital signs do reflect orthostasis and he appears to have significantly dry oral mucous membranes. I believe he could benefit from a fluid challenge I will give him another liter of IV fluids today. We discussed the possibility of swing bed at discharge given the fact that Mr. Joshi is extremely debilitated, particularly in his lower extremities. His shuffling gait seems to have worsened as well as the weakness of his legs. He has difficulty standing up straight and is at risk for falls. Physical therapy has been working with him to improve his gait and strength. In addition, I will add bilateral RODY hose to see if this may improve some venous return. I discussed with Dr. Daniels. He would like to further study Mr. Joshi when he gets released from swing bed. The studies will include outpatient stress testing, 30 day event monitor and/or Linq device. JANUARY 28, 2017 REVIEW OF SYSTEMS: Cardiovascular: Denies chest pain heaviness or tightness. Denies palpitations. Pulmonary: Denies shortness of breath, PND or orthopnea. Neurological: Awake, alert, oriented. History intestinal: Denies nausea, vomiting or abdominal pain IMPRESSION/PLAN: 1. SYNCOPE -from a cardiac standpoint, will continue to monitor for arrhythmia and other cardiac contributions. Patient may benefit from 30 day event monitor outpatient. He may further benefit from Reveal Linq device. He will require outpatient stress test as well. Appreciate Dr. Moura's assistance. Patient does have orthostasis per vital signs this morning. Certainly, his heart can tolerate IV fluids and I will rehydrate him overnight. Adding bilateral TEDs to assist with venous return. 2. HYPERTENSION - adjust medications accordingly during hospital stay 3. ABNORMAL TROPONIN - in the setting of normal CPK, CK-MB. This is NOT [place]. 4. DEBILITATED PATIENT - definitely would benefit from swing bed. Physical therapy is assessing and working with patient. I will verify case management is working toward this goal. 5. PARKINSON'S - patient tells me that Dr. Moura does believe that he has Parkinson's disease per recent report he received from [place], [place] study. Exam (Progress Note) - Constitutional Vitals: Period Temp Pulse Resp BP Sys/Caicedo Pulse Ox Last 24 Hr 96.1 F-98.4 F 59-68 18-20 120-193/64-100 96-99 Exam: General: Present: Appears Well, No Apparent Distress. Pleasant and cooperative HEENT: Present: PERRL, Sinus Tenderness Neck: Present: Supple Neck, Midline Trachea Cardiac: Present: Reg Rate and Rhythm, No Murmur Lungs: Present: Normal Breath Sounds, No Wheeze, Rales, Rhonchi Neuro: Absent: Resting Tremor, Essential Tremor Abdomen: Present: Soft, Active Bowel Sounds, Non-Tender. Absent: Distended Skin: Absent: Rash, Suspicious Lesions Musculoskeletal: Present: No Pain, Normal Range of Motion Extremities: Present: No Edema, Normal Upper Extr. Pulses, Normal Lower Extr. Pulses Result/EKG - Labs CBC & BMP: 01/26/17 18:41 01/26/17 18:41 Lab Results: I have reviewed the past 24 hour labs Labs: Laboratory Results - last 24 hr 01/27/17 01/27/17 01/28/17 17:03 22:30 04:31 Total Creatine Kinase 52 51 44 CK-MB (CK-2) 1.2 1.2 < 1.0 Troponin I 0.059 H D 0.064 H 0.051 H D - Diagnostic Findings Procedure: Chest x-ray: report reviewed by me - EKG EKG results: interpreted by fl EKG shows: sinus rhythm Specialty Discharge - Follow Up or Referrals Follow up with: Chino Daniels MD [Physician] - (3-4 weeks. Sooner if problems) Alberto Donnelly Bonnie E, NP, personally performed the services described in this documentation, ascribed by Linnette Ryan RN in my presence, and it is both accurate and complete 555 .
[2017-01-28] MEDS ORDERED: SODIUM CHLORIDE 0.45% 1,000 ML IV SCH (16:00)
--- NOTE | 2017-01-28 18:32 | Hospitalist Progress Note ---
Assessment and Plan (1) Syncope and collapse Status: Acute Assessment and plan: Continue workup as discussed with cardiology. outpatient stress test Reduce beta-chayo dose Continue statin Plan for outpatient 30 day event monitor upon discharge Swing bed evaluation with PT and OT consults. Current Visit: Yes (2) Parkinsonian features Status: Acute Assessment and plan: Follow-up with neurology. Started on Requip. Current Visit: Yes (3) Hypertension Status: Chronic Assessment and plan: Start beta-chayo. Resume KAROL inhibitor. Hold Norvasc. Current Visit: Yes Qualifiers: Hypertension type: essential hypertension Qualified Code(s): I10 - Essential (primary) hypertension Hospitalist: Subjective Interval history: Patient seen and examined. Case discussed with cardiology PRESS MACHINE OPERATOR and Dr. Daniels. Patient's is at the bedside and feels uncomfortable taking him home. They have requested swing bed evaluation and placement. PT OT consult has been placed on have notified the child welfare caseworker to start working on it. Patient will be set up for an outpatient stress test on loop recorder implantation. We will hold off using beta blockers to avoid orthostatic hypotension. Exam - Constitutional Vitals: Period Temp Pulse Resp BP Sys/Caicedo Pulse Ox Last 24 Hr 97.0 F-98.4 F 55-68 18-20 120-164/64-95 96-98 Exam: Constitutional System: No distress. No tremulousness. Head: Normocephalic, atraumatic. Ears, Nose and Throat System: No pain or tenderness. No epistaxis or discharge Eyes System: Pupils equal, round, and reactive. Extraocular muscles intact. Neck: Supple, without adenopathy, No jugular venous distention. No thyromegaly, neck mass, or prior surgery apparent. Respiratory System: Chest clear to auscultation. Cardiovascular System: Heart with regular rate and rhythm. No murmur. GI System: Abdomen soft, nontender. Normo active bowel sounds present. Musculoskeletal System: limbs with no pedal edema. Full distal pulses. Normal capillary refill. Neurological System: No discernable sensory deficit. No aphasia Psychiatric System: Conversation is rational Results - Labs CBC & BMP: 01/26/17 18:41 01/26/17 18:41 Lab Results: I have reviewed the past 24 hour labs - Impressions carotids, echo and MRI reviewed. Cardiology and neurology consults reviewed. Specialty Discharge - Follow Up or Referrals Follow up with: Chino Daniels MD [Physician] - (3-4 weeks. Sooner if problems)
[2017-01-28] MEDS: ENOXAPARIN 40 MG/0.4 ML SYRINGE SUBCUT SCH (21:01)
[2017-01-28] MEDS: ATORVASTATIN 80 MG TABLET PO SCH (21:01)
[2017-01-29] MEDS: THIAMINE 100 MG TABLET PO SCH (08:50)
[2017-01-29] MEDS: ASPIRIN 325 MG TABLET PO SCH (08:50)
[2017-01-29] MEDS: rOPINIRole 0.25 MG TABLET PO SCH (08:50)
[2017-01-29] MEDS: FOLIC ACID 1 MG TABLET PO SCH (08:51)
[2017-01-29] MEDS: RAMIPRIL 5 MG CAPSULE PO SCH (08:51)
[2017-01-29] MEDS: ALLOPURINOL 300 MG TABLET PO SCH (08:51)
--- NOTE | 2017-01-29 11:59 | Discharge Summary ---
Hospital Course - Hospital Course Hospital Course: PRINTER'S DEVIL: DR. DANIELS (new) PCP: DR. GRAF SUMMARY: Mr. Joshi, 71WM, with no known history of CAD but risk factors significant for: hypertension, TIAs. Admitted January 26, 2017 after experiencing several syncopal episodes within 24 hours prior to admission. He has been battling this problem for several months. He has been worked up by Dr. Graf, Dr. Moura and, unfortunately, no definite etiology has been identified. November 2016 Holter monitor revealed frequent PVCs, occasional and some ventricular bigeminy, however no significant arrhythmia. During this admission, no arrhythmia has been identified. CT head reveals chronic, small vessel ischemic changes, no acute abnormality. Carotid ultrasounds reveal no significant stenosis. It is believed that he has been diagnosed with Parkinson' s disease. Cardiology was consulted for mildly abnormal troponins (normal CPK and CK-MB), syncope. January 27, 2017 echocardiogram: EF 55%, no significant valvular abnormality. JANUARY 28, 2017: Patient is followed for chronic, stable conditions include hypertension, TIAs. He has followed for more acute conditions to include syncope. Denies chest pain, heaviness, tightness. Denies shortness of breath, PND or orthopnea. Mr. Joshi is seen today along with his . Overnight, no arrhythmia noted. Vital signs do reflect orthostasis and he appears to have significantly dry oral mucous membranes. I believe he could benefit from a fluid challenge I will give him another liter of IV fluids today. We discussed the possibility of swing bed at discharge given the fact that Mr. Joshi is extremely debilitated, particularly in his lower extremities. His shuffling gait seems to have worsened as well as the weakness of his legs. He has difficulty standing up straight and is at risk for falls. Physical therapy has been working with him to improve his gait and strength. In addition, I will add bilateral RODY hose to see if this may improve some venous return. I discussed with Dr. Daniels. He would like to further study Mr. Joshi when he gets released from swing bed. The studies will include outpatient stress testing, 30 day event monitor and/or Linq device. IMPRESSION/PLAN: 1. SYNCOPE -from a cardiac standpoint, will continue to monitor for arrhythmia and other cardiac contributions. Patient may benefit from 30 day event monitor outpatient. He may further benefit from Reveal Linq device. He will require outpatient stress test as well. Appreciate Dr. Moura's assistance. Patient does have orthostasis per vital signs this morning. Certainly, his heart can tolerate IV fluids and I will rehydrate him overnight. Adding bilateral TEDs to assist with venous return. 2. HYPERTENSION - adjust medications accordingly during hospital stay 3. ABNORMAL TROPONIN - in the setting of normal CPK, CK-MB. This is NOT [place]. 4. DEBILITATED PATIENT - definitely would benefit from swing bed. Physical therapy is assessing and working with patient. I will verify case management is working toward this goal. 5. PARKINSON'S - patient tells me that Dr. Moura does believe that he has Parkinson's disease per recent report he received from [facility]. The patient was evaluated for swing bed placement but did not meet criteria due to his strength and ability to walk without assistance. He is being discharged home with home health today. He will follow-up with cardiology as an outpatient. He will have an outpatient stress test and possibly a loop recorder implanted for further evaluation of his syncopal episodes. Today he is awake and alert and oriented 3 and in no distress. His is at the bedside. We have consulted [facility] and will arrange physical therapy through them. Of note the patient's daughter is a physical therapist with [employer]. His son-in-law works at [employer]. He was given a new prescription for Requip as prescribed by Dr. Moura as well as Lipitor for his hyperlipidemia. His Norvasc was stopped. Beta-blockers are being avoided due to bradycardia. - Time spent with patient Time with patient DS: Greater than 30 minutes (Total discharge time for this patient, including gbma-us-upzy time, clinical documentation, medication reconciliation, and discharge planning was 40 minutes.) Diagnosis - Discharge Diagnosis (1) Syncope and collapse Status: Resolved (2) Parkinsonian features Status: Chronic (3) Hypertension Status: Chronic Specialty Discharge - Follow Up or Referrals Follow up with: Chino Daniels MD [Physician] - (3-4 weeks. Sooner if problems) Discharge Plan - Discharge Data Disposition: Home Health Service Condition at Discharge: Stable Discharge Diet: advance to your usual diet Activity: resume usual activities as tolerated, as per physical therapy Hygiene: no restrictions Weight Bearing at Discharge: full weight bearing Contact your physician if you experience:: fever over 101, Nausea/Vomiting, Shortness of breath, pain uncontrolled by pain medications - Discharge Medications New RX: Atorvastatin [Lipitor] 80 mg PO BEDTIME #30 tablet RX: rOPINIRole [Requip] 0.25 mg PO TID #90 tablet RX: Thiamine Tab [Vitamin B1 Tab] 100 mg PO DAILY tablet RX: Folic Acid Tab 1 mg PO DAILY tablet Continue RX: Ramipril 20 mg PO DAILY RX: Meloxicam 15 mg PO DAILY RX: Allopurinol 300 mg PO DAILY RX: Aspirin/Calcium Carbonate/Mag [Aspirin Buffered 325 mg Tab] 325 mg PO DAILY RX: Multivitamin (Centrum) [Centrum Tab] 1 tablet PO DAILY Discontinued RX: amLODIPine [Norvasc] 10 mg PO DAILY - Follow Up or Referral Follow Up: Chino Daniels MD [Physician] - (3-4 weeks. Sooner if problems) - Forms/Instructions Instructions: Cardiac Stress Test (DC), Syncope (DC) Exam - Constitutional Vitals: Period Temp Pulse Resp BP Sys/Caicedo Pulse Ox Last 24 Hr 97.5 F-98.5 F 50-61 18-20 138-163/84-100 95-97 Discharge Results Procedures and tests throughout hospitalization: Pending Orders 01/27/17 04:00 CT angio head IN AM Labs on day of discharge: Labs from last 24 hours 01/26/17 20:54 Thiamine (Vit B1) Kristen 181 H DS: Provider Date of admission: 01/26/17 20:20 Primary care physician: Lj Graf DO Attending physician on admission: Rafita Brown MD Consults: 01/26/17 21:31 Consult to Case Mgmt/Social Srvs [CONS] Routine Reason for Case Mgmt/Social Srvs: Discharge Planning Consult to Occupational Therapy [CONS] Routine Reason for Occupational Therapy: Evaluate and Treat Consult Comment: Stroke Consult to Physical Therapy [CONS] Routine Reason for Physical Therapy: Evaluate and Treat Consult Comment: stroke Consult to Physician [CONS] Routine Comment: multiple syncope episodes Consulting Provider: Rojas Salazar Consulting Provider Notified: Yes When should Consulting Provider be notified: Now Consult to Specialist Group: Cardiology When should Consulting Provider be notified: Now Person Notified: WHITNEY Date Notified: 01/27/17 Time Notified: 08:39 Consult to Physician [CONS] Routine Comment: slurred speech, shuffle gait, benjamin scan results Consulting Provider: Kvng Moura Consulting Provider Notified: Yes When should Consulting Provider be notified: Now Consult to Specialist Group: Neurology When should Consulting Provider be notified: Now Person Notified: CHRISTINE Date Notified: 01/27/17 Time Notified: 09:32 01/26/17 23:47 Consult to Pastoral Services [CONS] Routine Comment: Pastoral Screen: Request Food Service Attendant Visit Pastoral Screen Source of Request: Patient Other Other Source Requesting: Nursing 01/28/17 13:35 Consult to Case Mgmt/Social Srvs [CONS] Routine Reason for Case Mgmt/Social Srvs: Discharge Planning Consult Comment: Home Physical Therapy Discharging clinician: Rafita Brown MD Expected date of discharge: 01/29/17
[2017-01-29 12:12] VITALS: BP 154/92
--- NOTE | 2017-01-29 18:41 | Cardiology Progress Note ---
Assessment and Plan (1) Syncope and collapse Status: Resolved Assessment and plan: Differential diagnoses include Shy-Drager syndrome related to his Parkinson's disease, bradycardia, tachycardia, neurological event, some type of seizure, conversion disorder, related sleep apnea or some other cause Differential diagnosis of his chest pain would be CAD GI or muscle skeletal Plan/recommendation: Check cardiac isoenzymes If positive, will do cath If negative will be doing an outpatient stress test with Cardiolite and possible Lexiscan Referral to Dr. Flores regarding suspected sleep apnea-the patient is okay with this Orthostatic blood pressure checks I discussed with the patient the benefits of tapering and discontinuing oral tobacco. He is considering it. He improved with me of me talking to his son-in-law, Flavio, but his overall condition Proton pump inhibitor Low-dose aspirin Hold Coreg because of borderline bradycardia If need other tests for blood pressure can use one it would not have an effect on lowering the heart rate We might consider a 30 day event monitor after he is out of the hospital, particularly since his events are relatively infrequent Next would be to try a linq --to document rhythm with symptoms I conferred care with Dr. Julieta Brown Thank you for allowing me to participate in this patient's care 01/29/17 His symptoms sound like they could be a seizure where there is sudden onset and he just wakes up not know what it happened Could also be orthostasis. We will have him get up slowly His is to check his blood pressure and pulse twice a day, record it, and bring it to our meeting next time She is also to check his blood pressure if he gets dizzy or is about to blackout I will set him up for a stress test with Cardiolite next week. I will then see him the week after. At that point we will consider getting a 30 day event monitor I will be sure that he has a follow-up with Dr. Vandana Flores Thank you for allowing me to participate in this patient's care (2) Suspected sleep apnea Status: Chronic (3) Chest pain Status: Resolved (4) Parkinsonian features Status: Chronic (5) Hypertension Status: Chronic Qualifiers: Hypertension type: essential hypertension Qualified Code(s): I10 - Essential (primary) hypertension Cardiology - PN: Subj Interval history: No chest pain, shortness breath, or spells of near syncope/syncope Exam (Progress Note) - Constitutional Vitals: Period Temp Pulse Resp BP Sys/Caicedo Pulse Ox Last 24 Hr 97.5 F-98.5 F 50-83 18-20 138-158/84-100 95-97 Exam: HEENT: Pupils equal, reactive to light and accommodation Neck: NoJVD or bruit Lungs clear to auscultation Heart: Regular rhythm rate with normal S1 and S2. Apical S4 Abdomen: No hepatosplenomegaly Spine/extremities: No clubbing, cyanosis, or edema Neuro: Nonfocal Psych: No depression or anxiety Result/EKG - Labs CBC & BMP: 01/26/17 18:41 01/26/17 18:41 Lab Results: I have reviewed the past 24 hour labs Labs: Laboratory Results - last 24 hr 01/26/17 20:54 Thiamine (Vit B1) Kristen 181 H - EKG EKG results: interpreted by me Specialty Discharge - Follow Up or Referrals Follow up with: Chino Daniels MD [Physician] - (3-4 weeks. Sooner if problems) Rizwana Flores MD [Physician] -
== END 2017-01-29 13:20 | disposition home health service (06) | DRG 312 ==
LOC: EDUNIT# → EDBD → N.ED 18:32 → N.EDINP 20:20 → N.4E 21:08
PROVIDERS: ADMIT Family Medicine; ATTEND Family Medicine